=== PATIENT | male | born 2000 | race African-American/Black ===

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

== ENCOUNTER 2019-12-02 10:19 | Emergency (ER) | payer SELFPAY ==
[~2019-12-02] VITALS: Ht 182.9 cm; Wt 65.0 kg
[2019-12-02 10:36] VITALS: BP 114/56
[2019-12-02] MEDS ORDERED: AZITHROMYCIN 250 MG TABLET. PO ONE (11:00)
[2019-12-02] MEDS ORDERED: cefTRIAXone IM 250 MG VIAL IM ONE (11:00)
--- NOTE | 2019-12-02 11:05 | PHYS DOC ---
Past Medical History Past Medical History: No Pertinent History Past Surgical History: No Surgical History Smoking Status: Light Tobacco Smoker Alcohol Use: None Drug Use: None General Adult EDM: Chief Complaint: GROIN PAIN HPI: HPI: Patient is a 18 male presents with report of white discharge and dysuria x 2-3 days. Patient reports has had unprotected sexual activity with 2 different individuals. Denies fever/chills. Denies testicular pain. Denies nausea and vomiting. Review of Systems: Review of Systems: Constitutional: Denies fever or chills Eyes: Denies redness or eye pain HENT: Denies nasal congestion or sore throat Respiratory: Denies cough or shortness of breath Cardiovascular: Denies chest pain or palpitations GI: Denies abdominal pain, nausea, or vomiting : Denies dysuria or hematuria; reports penile discharge Musculoskeletal: Denies back pain or joint pain Integument: Denies rash or skin lesions Neurologic: Denies headache, focal weakness or sensory changes Complete systems were reviewed and found to be within normal limits, except as documented in this note. Current Medications: Current Medications Medications (Trade) Dose Ordered Sig/Foreign Start Time Stop Time Status Last Admin Dose Admin Azithromycin (Zithromax) 1,000 mg 1X ONCE 12/02/19 11:00 12/02/19 11:01 Ceftriaxone Sodium (Rocephin Im) 250 mg 1X ONCE 12/02/19 11:00 12/02/19 11:01 Allergies: Allergies: Allergies Coded Allergies Type Severity Reaction Last Updated Verified No Known Drug Allergies 11/14/18 No Physical Exam: PE: Constitutional: Well developed, well nourished, no acute distress, non-toxic appearance HENT: Normocephalic, atraumatic Eyes: Conjunctiva normal, no discharge Neck: Normal range of motion, supple Lungs & Thorax: No respiratory distress, equal chest rise and fall Abdomen: Soft, no tenderness : External genitalia normal, white discharge noted from glans penis, testicles without tenderness on palpation, cremasteric reflex intact bilaterally Skin: Warm, dry, no erythema, no rash Neurologic: Alert and oriented X 3, no focal deficits noted Psychologic: Affect normal, judgment normal Current Patient Data: Vital Signs: Vital Signs Date Time Temp Pulse Resp B/P (MAP) Pulse Ox O2 Delivery O2 Flow Rate FiO2 12/02/19 10:36 98.3 76 18 114/56 (75) 99 Room Air 98.3 EKG: EKG: [] Radiology/Procedures: Radiology/Procedures: [] Course & Med Decision Making: Course & Med Decision Making Patient presents with HPI and physical exam concerning for gonorrhea. Empiric treatment for gonorrhea and chlamydia provided. Urine obtained for testing. Patient stable for discharge with outpatient follow-up with PCP. Discussed findings and plan with patient, who acknowledges understanding and agreement. Paige Disclaimer: Paige Disclaimer: This electronic medical record was generated, in whole or in part, using a voice recognition dictation system. Departure Departure Impression: Primary Impression: Concern about STD in male without diagnosis Disposition: 01 HOME, SELF-CARE Condition: STABLE Referrals: NO PCP (PCP) Patient Instructions: Sexually Transmitted Disease, [id number] Additional Instructions: Please notify your sexual partners. Refrain from any sexual activity for next week. Scripts No Active Prescriptions or Reported Meds Justicifation of Admission Dx: Justifications for Admission: Justification of Admission Dx: N/A MARTA SINGH DO Dec 02, 2019 11:05
[2019-12-02 11:28] LABS: BILIRUBIN,URINE SMALL (NEG); CLARITY,URINE CLOUDY; COLOR,URINE YELLOW; NITRITE,URINE NEGATIVE (NEG); PROTEIN,URINE 30 mg/dL (NEG-TRACE)
[2019-12-02 11:51] LABS: BACTERIA,URINE MODERATE /HPF (0-FEW); RBC,URINE FIELD OBSCURED /HPF (0-2); WBC,URINE >40 /HPF (0-4)
== END 2019-12-02 11:54 | disposition home or self-care (01) ==
LOC: ER 10:19
DX: Z20.2 Contact with and (suspected) exposure to infections with a predominantly sexual mode of transmission (principal); R36.9 Urethral discharge, unspecified; R30.0 Dysuria; Z72.0 Tobacco use
CPT/HCPCS: 81001; 87086; 87491; 87591; 96372; 99283; J0696

== ENCOUNTER 2020-01-13 14:35 | Emergency (ER) | payer SELFPAY ==
[~2020-01-13] VITALS: Ht 180.3 cm; Wt 68.1 kg
[2020-01-13 14:51] VITALS: BP 108/57
[2020-01-13] MEDS ORDERED: AZITHROMYCIN 250 MG TABLET. PO ONE (15:00)
[2020-01-13] MEDS ORDERED: cefTRIAXone IM 250 MG VIAL IM ONE (15:00)
--- NOTE | 2020-01-13 15:18 | PHYS DOC ---
Past Medical History Past Medical History: No Pertinent History Past Surgical History: No Surgical History Smoking Status: Light Tobacco Smoker Alcohol Use: None Drug Use: None General Adult EDM: Chief Complaint: SEXUALLY TRANSMITTED DISEASE HPI: HPI: Patient is a 19 year old AA male who presents to the emergency department with reports of his girlfriend testing positive for sexually transmitted infection. Patient is not sure what infection has been diagnosed. He denies any dysuria, abnormal discharge from his penis, testicular pain, fever, nausea, vomiting, diarrhea, back pain, or abdominal pain. The patient states he does not have any symptoms and is not concerned about a sexually transmitted infection he currently denies any complaints. Review of Systems: Review of Systems: Constitutional: Denies fever or chills. [] GI: Denies abdominal pain, nausea, vomiting, or diarrhea. [] : See HPI Integument: Denies rash. [] Neurologic: Denies headache Psychiatric: Denies depression or anxiety. [] Heart Score: Risk Factors: Risk Factors: DM, Current or recent (<one month) smoker, HTN, HLP, family history of CAD, obesity. Risk Scores: Score 0 - 3: 2.5% MACE over next 6 weeks - Discharge Home Score 4 - 6: 20.3% MACE over next 6 weeks - Admit for Clinical Observation Score 7 - 10: 72.7% MACE over next 6 weeks - Early Invasive Strategies Current Medications: Current Medications Medications (Trade) Dose Ordered Sig/Foreign Start Time Stop Time Status Last Admin Dose Admin Azithromycin (Zithromax) 1,000 mg 1X ONCE 01/13/20 15:00 01/13/20 15:01 DC 01/13/20 15:14 1,000 MG Ceftriaxone Sodium (Rocephin Im) 250 mg 1X ONCE 01/13/20 15:00 01/13/20 15:01 DC 01/13/20 15:14 250 MG Allergies: Allergies: Allergies Coded Allergies Type Severity Reaction Last Updated Verified No Known Drug Allergies 11/14/18 No Physical Exam: PE: Constitutional: Well developed, well nourished, no acute distress, non-toxic appearance. [] HENT: Normocephalic, atraumatic, bilateral external ears normal, nose normal. [] Eyes: PERRLA, EOMI, conjunctiva normal, no discharge. [] Neck: Normal range of motion, no stridor. [] Cardiovascular:Heart rate regular rhythm Lungs & Thorax: Respirations even and unlabored, no retractions, no respiratory distress Abdomen: soft, no tenderness Skin: Warm, dry, no erythema, no rash. [] Extremities: No cyanosis, ROM intact, no edema. [] Neurologic: Alert and oriented X 3, no focal deficits noted. [] Psychologic: Affect normal, judgement normal, mood normal. [] Current Patient Data: Vital Signs: Vital Signs Date Time Temp Pulse Resp B/P (MAP) Pulse Ox O2 Delivery O2 Flow Rate FiO2 01/13/20 14:51 98.6 79 16 108/57 (74) 98 Room Air 98.6 EKG: EKG: [] Radiology/Procedures: Radiology/Procedures: [] Course & Med Decision Making: Course & Med Decision Making Pertinent Labs and Imaging studies reviewed. (See chart for details) [] Dragon Disclaimer: Dragon Disclaimer: This electronic medical record was generated, in whole or in part, using a voice recognition dictation system. Departure Departure Impression: Primary Impression: Contact with and (suspected) exposure to infections with a predominantly sexual mode of transmission Disposition: HOME, SELF-CARE Condition: STABLE Referrals: NO PCP (PCP) Patient Instructions: Sexually Transmitted Disease, [id number] Additional Instructions: Recommend that you go to your local health department for comprehensive sexually transmitted disease testing. You have been treated for a suspected gonorrhea and chlamydia. Avoid having intercourse until the results of gonorrhea and chlamydia testing are available, these results will not be available for 48 hours. If one or both of these tests is positive, you need to refrain from intercourse for approximately 1 week following the treatment of any current partners. Follow-up with your primary care doctor if symptoms persist, return to ER symptoms worsen. Scripts No Active Prescriptions or Reported Meds Justicifation of Admission Dx: Justifications for Admission: Justification of Admission Dx: N/A MARTELL BROWN APRN Jan 13, 2020 15:18
== END 2020-01-13 15:22 | disposition home or self-care (01) ==
LOC: ER 14:35
DX: N48.89 Other specified disorders of penis (principal); Z20.2 Contact with and (suspected) exposure to infections with a predominantly sexual mode of transmission
CPT/HCPCS: 96372; 99283; J0696

== ENCOUNTER 2020-04-09 15:18 | Emergency (ER) | payer SELFPAY ==
[~2020-04-09] VITALS: Ht 182.9 cm; Wt 68.2 kg
[2020-04-09 15:28] VITALS: BP 120/70
[2020-04-09] MEDS ORDERED: metroNIDAZOLE 500 MG TABLET PO ONE (15:45)
[2020-04-09] MEDS ORDERED: cefTRIAXone IM 1 GM VIAL IM ONE (15:45)
[2020-04-09] MEDS ORDERED: AZITHROMYCIN 250 MG TABLET. PO ONE (15:45)
[2020-04-09 15:48] LABS: BILIRUBIN,URINE NEGATIVE (NEG); CLARITY,URINE TURBID; COLOR,URINE YELLOW; NITRITE,URINE NEGATIVE (NEG); PROTEIN,URINE NEGATIVE (NEG-TRACE)
[2020-04-09] MEDS ORDERED: DOXY-96 PO (15:54)
--- NOTE | 2020-04-09 15:54 | PHYS DOC ---
Past Medical History Past Medical History: No Pertinent History Past Surgical History: No Surgical History Smoking Status: Light Tobacco Smoker Alcohol Use: None Drug Use: None General Adult EDM: Chief Complaint: SEXUALLY TRANSMITTED DISEASE HPI: HPI: Patient is a 19 year old male presenting to the ED today complaining of penile discharge since yesterday. Patient reports exposure to STDs from unprotected sex. He states he has previous history of STDs. He has a t.shirt written "[employer]" Review of Systems: Review of Systems: Constitutional: Denies fever or chills. [] : Reports penile discharge Musculoskeletal: Denies back pain or joint pain. [] Integument: Denies rash. [] Neurologic: Denies headache, focal weakness or sensory changes. [] Psychiatric: Denies depression or anxiety. [] Heart Score: Risk Factors: Risk Factors: DM, Current or recent (<one month) smoker, HTN, HLP, family history of CAD, obesity. Risk Scores: Score 0 - 3: 2.5% MACE over next 6 weeks - Discharge Home Score 4 - 6: 20.3% MACE over next 6 weeks - Admit for Clinical Observation Score 7 - 10: 72.7% MACE over next 6 weeks - Early Invasive Strategies Current Medications: Current Medications Medications (Trade) Dose Ordered Sig/Foreign Start Time Stop Time Status Last Admin Dose Admin Azithromycin (Zithromax) 1,000 mg 1X ONCE 04/09/20 15:45 04/09/20 15:46 DC Ceftriaxone Sodium (Rocephin Im) 1 gm 1X ONCE 04/09/20 15:45 04/09/20 15:46 DC Metronidazole (Flagyl) 2,000 mg 1X ONCE 04/09/20 15:45 04/09/20 15:46 DC Allergies: Allergies: Allergies Coded Allergies Type Severity Reaction Last Updated Verified No Known Drug Allergies 11/14/18 No Physical Exam: PE: Constitutional: Well developed, well nourished, no acute distress, non-toxic appearance. [] HENT: Normocephalic, atraumatic, bilateral external ears normal, oropharynx moist, no oral exudates, nose normal. [] Eyes: PERRLA, EOMI, conjunctiva normal, no discharge. [] Neck: Normal range of motion, no tenderness, supple, no stridor. [] Cardiovascular:Heart rate regular rhythm, no murmur [] Lungs & Thorax: Bilateral breath sounds clear to auscultation [] Abdomen: Bowel sounds normal, soft, no tenderness, no masses, no pulsatile masses. [] Skin: Warm, dry, no erythema, no rash. [] Back: No tenderness, no CVA tenderness. [] Extremities: No tenderness, no cyanosis, no clubbing, ROM intact, no edema. [] Neurologic: Alert and oriented X 3, normal motor function, normal sensory function, no focal deficits noted. [] Psychologic: Affect normal, judgement normal, mood normal. [] Current Patient Data: Vital Signs: Vital Signs Date Time Temp Pulse Resp B/P (MAP) Pulse Ox O2 Delivery O2 Flow Rate FiO2 04/09/20 15:28 98.8 89 18 120/70 (87) 98 Room Air 98.8 EKG: EKG: [] Radiology/Procedures: Radiology/Procedures: [] Course & Med Decision Making: Course & Med Decision Making Pertinent Labs and Imaging studies reviewed. (See chart for details) This is a 19-year-old male patient presenting to the ED today with penile discharge and concern for STDs. Patient was treated and education provided. [employer] Disclaimer: [employer] Disclaimer: This electronic medical record was generated, in whole or in part, using a voice recognition dictation system. Departure Departure Impression: Primary Impression: Concern about STD in male without diagnosis Disposition: 01 DC HOME SELF CARE/HOMELESS Condition: STABLE Referrals: NO PCP (PCP) follow up with the health department Patient Instructions: Sexually Transmitted Disease Additional Instructions: You were seen in the ED for STD treatment. Do not have any intercourse for 2 weeks. Use protection after that. Inform all your partners you are positive and they can get treated to. We will call you next week if your test is positive. Scripts Doxycycline Hyclate (DOXYCYCLINE HYCLATE) 100 Mg Tablet. 1 TAB PO BID, #20 TAB Prov: JAMESON BARRETO APRN 04/09/20 JAMESON BARRETO APRN Apr 09, 2020 15:54
[2020-04-09 15:57] LABS: AMORPHOUS SEDIMENT,UR PRESENT /HPF; BACTERIA,URINE 0 /HPF (0-FEW); RBC,URINE OCC /HPF (0-2); WBC,URINE >40 /HPF (0-4)
== END 2020-04-09 16:40 | disposition home or self-care (01) ==
LOC: ER 15:18
DX: R36.9 Urethral discharge, unspecified (principal); Z20.2 Contact with and (suspected) exposure to infections with a predominantly sexual mode of transmission; Z72.0 Tobacco use
CPT/HCPCS: 81001; 87491; 87591; 96372; 99283; J0696

== ENCOUNTER 2020-08-28 19:07 | Emergency (ER) | payer SELFPAY ==
[~2020-08-28] VITALS: Ht 182.9 cm; Wt 66.0 kg
[~2020-08-28 19:07] MED LIST: DOXY-96 PO
[2020-08-28 19:45] VITALS: BP 132/79
[2020-08-28 20:09] LABS: BILIRUBIN,URINE SMALL (NEG); CLARITY,URINE CLEAR; NITRITE,URINE NEGATIVE (NEG); PH,URINE 6.5 (<5.0-8.0); PROTEIN,URINE 30 mg/dL (NEG-TRACE)
[2020-08-28 20:16] LABS: COLOR,URINE YELLOW
[2020-08-28 20:19] LABS: RBC,URINE 0 /HPF (0-2); WBC,URINE 20-40 /HPF (0-4)
[2020-08-28 20:20] LABS: BACTERIA,URINE 0 /HPF (0-FEW)
--- NOTE | 2020-08-28 20:24 | PHYS DOC ---
Past Medical History Past Medical History: No Pertinent History (LASHAE MARTÍNEZ APRN) Past Surgical History: No Surgical History (LASHAE MARTÍNEZ APRN) Smoking Status: Light Tobacco Smoker Alcohol Use: None Drug Use: None (LASHAE MARTÍNEZ APRN) General Adult EDM: Chief Complaint: SEXUALLY TRANSMITTED DISEASE HPI: HPI: Patient is a 19 year old male who presents with penile discharge for the last 3 days with burning with urination. Patient denies fever, abdominal pain, nausea, vomiting, back pain, diarrhea, blood in his urine. States he has had STDs in the past but that is the only medical history. Currently denies any pain. (LASHAE MARTÍNEZ PALLET SORTER) Review of Systems: Review of Systems: Constitutional: Denies fever or chills. [] Eyes: Denies change in visual acuity. [] HENT: Denies nasal congestion or sore throat. [] Respiratory: Denies cough or shortness of breath. [] Cardiovascular: Denies chest pain or edema. [] GI: Denies abdominal pain, nausea, vomiting, bloody stools or diarrhea. [] : + dysuria. + Penile discharge [] Musculoskeletal: Denies back pain or joint pain. [] Integument: Denies rash. [] Neurologic: Denies headache, focal weakness or sensory changes. [] Endocrine: Denies polyuria or polydipsia. [] Lymphatic: Denies swollen glands. [] Psychiatric: Denies depression or anxiety. [] (LASHAE MARTÍNEZ PALLET SORTER) Heart Score: C/O Chest Pain: No Risk Factors: Risk Factors: DM, Current or recent (<one month) smoker, HTN, HLP, family history of CAD, obesity. Risk Scores: Score 0 - 3: 2.5% MACE over next 6 weeks - Discharge Home Score 4 - 6: 20.3% MACE over next 6 weeks - Admit for Clinical Observation Score 7 - 10: 72.7% MACE over next 6 weeks - Early Invasive Strategies (LASHAE MARTÍNEZ PALLET SORTER) Current Medications: Current Medications Medications (Trade) Dose Ordered Sig/Foreign Start Time Stop Time Status Last Admin Dose Admin Azithromycin (Zithromax) 1,000 mg 1X ONCE 08/28/20 20:15 08/28/20 20:17 DC Ceftriaxone Sodium (Rocephin Im) 500 mg 1X ONCE 08/28/20 20:15 08/28/20 20:17 DC (LASHAE MARTÍNEZ APRN) Allergies: Allergies: Allergies Coded Allergies Type Severity Reaction Last Updated Verified No Known Drug Allergies 11/14/18 No (LASHAE MARTÍNEZ APRN) Physical Exam: PE: Constitutional: Well developed, well nourished, no acute distress, non-toxic appearance. [] HENT: Normocephalic, atraumatic, bilateral external ears normal, oropharynx moist, no oral exudates, nose normal. [] Eyes: PERRLA, EOMI, conjunctiva normal, no discharge. [] Neck: Normal range of motion, no tenderness, supple, no stridor. [] Cardiovascular:Heart rate regular rhythm, no murmur [] Lungs & Thorax: Bilateral breath sounds clear to auscultation [] Abdomen: Bowel sounds normal, soft, no tenderness, no masses, no pulsatile masses. [] Skin: Warm, dry, no erythema, no rash. [] Back: No tenderness, no CVA tenderness. [] Extremities: No tenderness, no cyanosis, no clubbing, ROM intact, no edema. [] Neurologic: Alert and oriented X 3, normal motor function, normal sensory function, no focal deficits noted. [] Psychologic: Affect normal, judgement normal, mood normal. Normal physical exam [] (LASHAE MARTÍNEZ APRN) EKG: EKG: [] (LASHAE MARTÍNEZ APRN) Radiology/Procedures: Radiology/Procedures: [] (LASHAE MARTÍNEZ APRN) Course & Med Decision Making: Course & Med Decision Making Pertinent Labs and Imaging studies reviewed. (See chart for details) See HPI. Abdomen is soft and nontender. No CVA tenderness. Speaks in full clear sentences. Alert and oriented x4. Ambulatory with a steady gait. Afebrile. Patient is treated with azithromycin and Rocephin in the ED. He is educated that he will called in 48 hours only if something comes back positive. No testicular swelling or pain. There is no sores on his penis. No penile discharge is seen. [] (LASHAE MARTÍNEZ APRN) Dragon Disclaimer: Dragon Disclaimer: This electronic medical record was generated, in whole or in part, using a voice recognition dictation system. (LASHAE MARTÍNEZ APRN) Departure Departure Impression: Primary Impression: Concern about STD in male without diagnosis Disposition: 01 DC HOME SELF CARE/HOMELESS Condition: STABLE Referrals: NO PCP (PCP) Patient Instructions: Sexually Transmitted Disease Additional Instructions: Follow-up with a urologist or your primary care provider if needed. Have all your other partners treated. Wait 10 days after you are treated before you have sexual intercourse again. Attending Signature Attending Signature I have reviewed the PA/[employer]'s note and plan of care. I was available for consultation as needed during the patient's visit in the emergency department. I agree with the clinical impression, plan, and disposition. (MARTA SINGH DO) LASHAE MARTÍNEZ APRN Aug 28, 2020 20:24 MARTA SINGH DO Aug 29, 2020 01:33
[2020-08-28] MEDS: cefTRIAXone IM 500 MG VIAL. IM ONE (20:52)
[2020-08-28] MEDS: AZITHROMYCIN 250 MG TABLET. PO ONE (20:53)
== END 2020-08-28 20:59 | disposition home or self-care (01) ==
LOC: ER 19:07
DX: R36.9 Urethral discharge, unspecified (principal); R30.9 Painful micturition, unspecified; R30.0 Dysuria; Z87.891 Personal history of nicotine dependence
CPT/HCPCS: 81001; 87086; 87491; 87591; 96372; 99283; J0696

== ENCOUNTER 2021-02-01 15:51 | Emergency (ER) | payer SELFPAY ==
[~2021-02-01] VITALS: Ht 180.3 cm; Wt 66.0 kg
[2021-02-01 17:13] VITALS: BP 113/66
[2021-02-01 17:44] LABS: BILIRUBIN,URINE NEGATIVE (NEG); CLARITY,URINE CLOUDY; COLOR,URINE YELLOW; NITRITE,URINE NEGATIVE (NEG); PROTEIN,URINE NEGATIVE (NEG-TRACE)
[2021-02-01 17:59] LABS: AMORPHOUS SEDIMENT,UR PRESENT /HPF; BACTERIA,URINE FEW /HPF (0-FEW); RBC,URINE OCC /HPF (0-2)
[2021-02-01] MEDS ORDERED: DOXY100C3 PO (18:34)
--- NOTE | 2021-02-01 18:34 | PHYS DOC ---
Past Medical History Past Medical History: No Pertinent History Additional Past Medical Histor: STD Past Surgical History: No Surgical History Smoking Status: Light Tobacco Smoker Alcohol Use: None Drug Use: None General Adult EDM: Chief Complaint: SEXUALLY TRANSMITTED DISEASE HPI: HPI: Patient is a 20-year-old male presents emergency department complaining of a recent STD exposure. Patient states he had unprotected sex approximately week ago, has had a 3-day history of penile discharge with burning on urination, denies rashes or lesions to his penis or genitals. Denies testicular pain, denies blood in his urine. Patient denies nausea, vomiting, diarrhea, chest pain, shortness of breath, recent fever or chills. Patient denies rashes to his palms or the bottom of his feet, patient denies rashes to his skin. Patient reports cigarette smoking, occasional drinking, denies illicit drug use. Patient denies any other physical complaints or physical concerns. Review of Systems: Review of Systems: 14 body systems of review of systems have been reviewed. See HPI for pertinent positives and negative responses, otherwise all other systems are negative, nonpertinent or noncontributory. Constitutional: Negative except as outlined in HPI above. Skin: Negative except as outlined in HPI above. Eyes: Negative except as outlined in HPI above. HENT: Negative except as outlined in HPI above. Respiratory: Negative except as outlined in HPI above. Cardiovascular: Negative except as outlined in HPI above. GI: Negative except as outlined in HPI above. : Negative except as outlined in HPI above. Musculoskeletal: Negative except as outlined in HPI above. Integument: Negative except as outlined in HPI above. Neurologic: Negative except as outlined in HPI above. Endocrine: Negative except as outlined in HPI above. Lymphatic: Negative except as outlined in HPI above. Psychiatric: Negative except as outlined in HPI above. Heart Score: C/O Chest Pain: No Risk Factors: Risk Factors: DM, Current or recent (<one month) smoker, HTN, HLP, family history of CAD, obesity. Risk Scores: Score 0 - 3: 2.5% MACE over next 6 weeks - Discharge Home Score 4 - 6: 20.3% MACE over next 6 weeks - Admit for Clinical Observation Score 7 - 10: 72.7% MACE over next 6 weeks - Early Invasive Strategies Allergies: Allergies: Allergies Coded Allergies Type Severity Reaction Last Updated Verified No Known Drug Allergies 11/14/18 No Physical Exam: PE: Constitutional: Well developed, well nourished, no acute distress, non-toxic appearance. 20-year-old male in no apparent distress. HENT: Normocephalic, atraumatic. Eyes: Conjunctiva normal, no discharge. Neck: Normal range of motion, no stridor. Cardiovascular: No cyanosis appreciated, distal cap refill less than 2 seconds. Lungs & Thorax: Patient is in no respiratory distress, no audible adventitious lung sounds appreciated. Abdomen: Nontender, no abnormalities noted. Skin: Warm, dry, no erythema, no rash. Back: No tenderness, no deformities. Extremities: No tenderness, no cyanosis, no clubbing, ROM intact, no edema. Neurologic: Alert and oriented X 3, normal motor function, normal sensory function, no focal deficits noted. Psychologic: Affect normal, judgement normal, mood normal. Current Patient Data: Labs: Laboratory Tests Test 02/01/21 17:30 Urine Collection Type Unknown Urine Color Yellow Urine Clarity Cloudy Urine pH 8.0 (<5.0-8.0) Urine Specific Jay[place] 1.020 (1.000-1.030) Urine Protein Negative mg/dL (NEG-TRACE) Urine Glucose (UA) Negative mg/dL (NEG) Urine Ketones (Stick) Negative mg/dL (NEG) Urine Blood Negative (NEG) Urine Nitrite Negative (NEG) Urine Bilirubin Negative (NEG) Urine Urobilinogen Dipstick 1.0 mg/dL (0.2 mg/dL) Urine Leukocyte Esterase Small (NEG) Urine RBC Occ /HPF (0-2) Urine WBC 5-10 /HPF (0-4) Urine Squamous Epithelial Cells Occ /LPF Urine Amorphous Sediment Present /HPF Urine Bacteria Few /HPF (0-FEW) Urine Mucus Marked /LPF Vital Signs: Vital Signs Date Time Temp Pulse Resp B/P (MAP) Pulse Ox O2 Delivery O2 Flow Rate FiO2 02/01/21 17:13 98.9 75 16 113/66 (82) 98 Room Air 98.9 EKG: EKG: [] Radiology/Procedures: Radiology/Procedures: [] Course & Med Decision Making: Course & Med Decision Making Pertinent Labs and Imaging studies reviewed. (See chart for details) 20-year-old male, vital signs reviewed, presents emergency department complaining of burning with urination and penile drip for the past 3 days after unprotected sex a week ago. Patient refused penis genital exam stating he does not have rashes or lesions or testicular pain. Discussed with patient will send urine sample for urinalysis assay and gonorrhea/chlamydia work-up. We will treat prophylactically for gonorrhea and chlamydia. Will give Rocephin IM in ED today, prescribed doxycycline twice daily x7 days. Patient is amenable to ED planning. Patient's urine shows bacteria, no nitrites, no blood. Discussed findings with patient, will give IM Rocephin and discharged home with prescription to pharmacy of choice for doxycycline twice daily x7 days. Discussed safe sex practices, condom barrier sex, discussed with the patient all findings and diagnostic testing as well as the need to follow-up with their primary care provider for further evaluation and treatment or return to the ED if any new or worsening symptoms. Strict return precautions were also discussed at length, the patient voiced understanding and agreement with the discharge planning. The patient was nontoxic in appearance, in no apparent distress, and hemodynamically stable at the time of disposition. Jesuson Disclaimer: Paige Disclaimer: This electronic medical record was generated, in whole or in part, using a voice recognition dictation system. Departure Departure Impression: Primary Impression: Contact with and (suspected) exposure to infections with a predominantly sexual mode of transmission Additional Impression: Concern about STD in male without diagnosis Disposition: 01 HOME / SELF CARE / HOMELESS Condition: GOOD Referrals: NO PCP (PCP) Patient Instructions: Sexually Transmitted Disease Additional Instructions: You were treated in the emergency department today for gonorrhea/chlamydia. You were given 500 mg Rocephin IM, the oral antibiotic was sent to the pharmacy of your choice. Please take as directed until complete. A urine sample was sent to the lab for testing regarding gonorrhea and chlamydia. These results may not be available until after 48 to 72 hours. It is unlikely so we will contact you with results as you were treated in the emergency department for these diseases. Please refrain from sex until symptoms have resolved, please use condom barrier protective sex to help minimize the spread of sexually trans mitted diseases. Return to the emergency department for worsening symptoms or other concerns. Thank you for visiting our Emergency Department. It was a pleasure taking care of you today in the emergency department and we appreciate you trusting us with your care. If any additional problems come up don't hesitate to return to visit us. Please follow up with your primary care provider so they can plan additional care if needed and know about the problem that you had. If symptoms worsen come back to the Emergency Department. Any concerning symptoms that start such as chest pain, shortness of air, weakness or numbness on one side of the body, running high fevers or any other concerning symptoms return to the ER. EMERGENCY DEPARTMENT GENERAL DISCHARGE INSTRUCTIONS Thank you for coming to [facility] Emergency Department (ED) today and trusting us with you care. We trust that you had a positive experience in our Emergency Department. If you wish to speak to the department management, you may call the Director at [phone]. YOUR FOLLOW UP INSTRUCTIONS ARE FOLLOWS: 1. Do you have a private Doctor? If you do not have a private doctor, please ask for a resource list of physicians or clinics that may be able to assist you with follow up care. 2. The Emergency Physicain has interpreted your x-rays. The X-Ray specialist will also review them. If there is a change in the findings, you will be notified in 48 hours when at all possible. 3. A lab test or culture has been done, your results will be reviewed and you will be notified if you need a change in treatment. ADDITIONAL INSTRUCTIONS AND INFORMATION: 1. Your care today has been supervised by a physician who is specially trained in emergency care. Many problems require more than one evaluation for a complete diagnosis and treatment. We recommend that you schedule your follow up appointment as recom mended to ensure complete treatment of you illness or injury. If you are unable to obtain follow up care and continue to have a problem, or if your condition worsens, we recommend that you return to the ED. 2. We are not able to safely determine your condition over the phone nor are we able to give sound medical advice over the phone. For these safety reasons, if you call for medical advice we will ask you to come to the ED for further evaluation. 3. If you have any questions regarding these discharge instructions please call the ED at [phone]. SAFETY INFORMATION: In the interest of safety, wellness, and injury prevention; we encourage you to wear your sealbelt, if you smoke; quite smoking, and we encourage family to use a protective helmet for bicycling and other sporting events that present an increased risk for head injury. IF YOUR SYMPTOMS WORSEN OR NEW SYMPTOMS DEVELOP, OR YOU HAVE CONCERNS ABOUT YOUR CONDITION; OR IF YOUR CONDITION WORSENS WHILE YOU ARE WAITING FOR YOUR FOLLOW UP APPOINTMENT; EITHER CONTACT YOUR PRIMARY CARE DOCTOR, THE PHYSICIAN WHOSE NAME AND NUMBER YOU WERE GIVEN, OR RETURN TO THE ED IMMEDIATELY. Scripts Doxycycline Hyclate (DOXYCYCLINE HYCLATE) 100 Mg Capsule 1 CAP PO BID for infection, #14 CAP 0 Refills Prov: MARTA VU APRN 02/01/21 MARTA VU APRN Feb 01, 2021 18:34
[2021-02-01] MEDS ORDERED: cefTRIAXone IM 500 MG VIAL. IM ONE (19:00)
== END 2021-02-01 19:18 | disposition home or self-care (01) ==
LOC: ER 15:51
DX: Z20.2 Contact with and (suspected) exposure to infections with a predominantly sexual mode of transmission (principal); Z72.0 Tobacco use
CPT/HCPCS: 81001; 87086; 87491; 87591; 96372; 99283; J0696

== ENCOUNTER 2021-04-18 18:35 | Emergency (ER) | payer SELFPAY ==
[~2021-04-18 18:35] MED LIST changes: +DOXY100C3 PO
== END 2021-04-18 20:30 | disposition left against medical advice (07) ==
LOC: ER 18:35
DX: A64 Unspecified sexually transmitted disease (principal); Z53.21 Procedure and treatment not carried out due to patient leaving prior to being seen by health care provider

== ENCOUNTER 2021-08-17 12:34 | Emergency (ER) | payer SELFPAY ==
[~2021-08-17] VITALS: Ht 182.9 cm; Wt 64.6 kg
[2021-08-17 12:37] VITALS: BP 110/62
--- NOTE | 2021-08-17 13:51 | PHYS DOC ---
Past Medical History Past Medical History: STD Additional Past Medical Histor: STD Past Surgical History: No Surgical History Smoking Status: Light Tobacco Smoker Alcohol Use: None Drug Use: None General Adult EDM: Chief Complaint: SEXUALLY TRANSMITTED DISEASE HPI: HPI: Patient is a 20-year-old male that presents today for an STI. Patient states that he has had a past medical history of having chlamydia and gonorrhea, and he is having a penile discharge today and he is requesting treatment and evaluation for this. Patient does complain of painful urination with penile discharge but no testicular pain. Review of Systems: Review of Systems: Constitutional: Denies fever or chills. [] Eyes: Denies change in visual acuity. [] HENT: Denies nasal congestion or sore throat. [] Respiratory: Denies cough or shortness of breath. [] Cardiovascular: Denies chest pain or edema. [] GI: Denies abdominal pain, nausea, vomiting, bloody stools or diarrhea. 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 [] Musculoskeletal: Denies back pain or joint pain. [] Integument: Denies rash. [] Neurologic: Denies headache, focal weakness or sensory changes. [] Endocrine: Denies polyuria or polydipsia. [] Lymphatic: Denies swollen glands. [] Psychiatric: Denies depression or anxiety. [] Heart Score: C/O Chest Pain: N/A Risk Factors: Risk Factors: DM, Current or recent (<one month) smoker, HTN, HLP, family history of CAD, obesity. Risk Scores: Score 0 - 3: 2.5% MACE over next 6 weeks - Discharge Home Score 4 - 6: 20.3% MACE over next 6 weeks - Admit for Clinical Observation Score 7 - 10: 72.7% MACE over next 6 weeks - Early Invasive Strategies Allergies: Allergies: Allergies Coded Allergies Type Severity Reaction Last Updated Verified No Known Drug Allergies 11/14/18 No Physical Exam: PE: Constitutional: Well developed, well nourished, no acute distress, non-toxic appearance. [] HENT: Normocephalic, atraumatic, bilateral external ears normal, oropharynx moist, no oral exudates, nose normal. [] Eyes: PERRLA, EOMI, conjunctiva normal, no discharge. [] Neck: Normal range of motion, no tenderness, supple, no stridor. [] Cardiovascular:Heart rate regular rhythm, no murmur [] Lungs & Thorax: Bilateral breath sounds clear to auscultation [] Abdomen: Bowel sounds normal, soft, no tenderness, no masses, no pulsatile masses. [] Skin: Warm, dry, no erythema, no rash. [] Back: No tenderness, no CVA tenderness. [] Extremities: No tenderness, no cyanosis, no clubbing, ROM intact, no edema. [] Neurologic: Alert and oriented X 3, normal motor function, normal sensory function, no focal deficits noted. [] Psychologic: Affect normal, judgement normal, mood normal. [] Current Patient Data: Vital Signs: Vital Signs Date Time Temp Pulse Resp B/P (MAP) Pulse Ox O2 Delivery O2 Flow Rate FiO2 08/17/21 12:37 98.9 18 18 110/62 (78) 97 Room Air 98.9 EKG: EKG: [] Radiology/Procedures: Radiology/Procedures: [] Course & Med Decision Making: Course & Med Decision Making Pertinent Labs and Imaging studies reviewed. (See chart for details) [] Dragon Disclaimer: Dragon Disclaimer: This electronic medical record was generated, in whole or in part, using a voice recognition dictation system. Departure Departure Impression: Primary Impression: Sexually transmitted disease exposure Disposition: HOME / SELF CARE / HOMELESS Condition: STABLE Referrals: NO PCP (PCP) Patient Instructions: Sexually Transmitted Disease Additional Instructions: Doxycycline take 1 tablet twice daily for 7 full days Use condom to decrease incidence of sexually transmitted infections Abstain from sexual contact for the next 7 days until you are completed with your antibiotics Follow-up with your primary care physician or one of the listed clinics below for further evaluation of your sexually transmitted infection[facility] [address] [place] [address] [facility] [address] [place] [address] [facility] [address] [facility] [place] [address] [facility] [address] [place] [address] [facility] [address] [place] [address] [address] [place] [address] [address] [place] [address] [facility] [address] [place] [address] [facility] [address] [place] [address] [facility] [address] [place] [address] Scripts Doxycycline Hyclate (DOXYCYCLINE HYCLATE) 100 Mg Capsule 1 CAP PO BID, #14 CAP Prov: DESTINEE CAZARES TECHNICIAN 08/17/21 DESTINEE CAZARES TECHNICIAN Aug 17, 2021 13:51
[2021-08-17] MEDS ORDERED: DOXY100C3 PO (13:54)
[2021-08-17] MEDS: cefTRIAXone IM 500 MG VIAL. IM ONE (14:20)
== END 2021-08-17 14:24 | disposition home or self-care (01) ==
LOC: ER 12:34
DX: R36.9 Urethral discharge, unspecified (principal); R30.0 Dysuria; Z20.2 Contact with and (suspected) exposure to infections with a predominantly sexual mode of transmission; Z72.0 Tobacco use
CPT/HCPCS: 96372; 99283; J0696